=== PATIENT | female | born 1990 | race Two or more races ===

== ENCOUNTER 2019-08-11 15:32 | Emergency (ER) | payer MEDICAID, OTHER ==
[~2019-08-11] VITALS: Ht 154.9 cm; Wt 86.2 kg
[2019-08-11 19:11] VITALS: BP 120/55
== END 2019-08-11 22:50 | disposition home or self-care (01) ==
LOC: ER 15:38
DX: O20.0 Threatened abortion (principal); Z3A.01 Less than 8 weeks gestation of pregnancy
CPT/HCPCS: 36415; 76801; 84702; 99284; J7030